=== PATIENT | male | born 1980 | race Caucasian/White ===

== ENCOUNTER 2021-07-04 16:19 | Emergency (ER) | payer SELFPAY ==
[~2021-07-04] VITALS: Ht 185.5 cm; Wt 158.8 kg
[~2021-07-04 16:19] MED LIST: AC500T PO; ACHD5005 PO; ATEN25TA PO; CIPR500T78 PO; CPR500T PO; DULO30CA PO; HYDR-3714 PO; HYDR12.570; HYDR1TAB PO; NAPR-243 PO; NAPR550T PO; NITR-65 PO; OMEP-10 PO; ONDA-42 SL; OXYC-12 PO; TMSL.4C PO; TRM50T PO
[2021-07-04 16:27] VITALS: BP 157/100
--- NOTE | 2021-07-04 16:35 | ED Lower Extremity ---
General Chief Complaint: Lower Extremity Stated Complaint: RIGHT FOOT PAIN/SWELLING Source: patient Exam Limitations: no limitations History of Present Illness Date Seen by Provider: Jul 04, 2021 Time Seen by Provider: 16:34 Initial Comments To ER with right lateral foot pain primarily over the fourth metatarsal. He fell on the ice on Tuesday of this week. Pain is worse with weightbearing. No sores or open wounds. Onset: just prior to arrival Severity: moderate Pain/Injury Location: right foot Method of Injury: fell Modifying Factors: Worse With Movement Allergies and Home Medications Allergies Coded Allergies: Sodium Phenolate (Unverified Allergy, Mild, EDEMA, 10/15/10) benzocaine (Unverified Allergy, Mild, EDEMA, 10/15/10) menthol (Unverified Allergy, Mild, EDEMA, 10/15/10) phenol (Unverified Allergy, Mild, EDEMA, 10/15/10) Patient Home Medication List Home Medication List Reviewed: Yes Ciprofloxacin HCl (Cipro) 500 Mg Tablet, 500 MG PO BID Prescribed by: SITA BERRY on 03/04/14 1059 Hydrocodone Bit/Acetaminophen (Hydrocodone-Apap 5-325 Tab) 1 Tab Tablet, 1-2 TAB PO Q4H PRN for PAIN Prescribed by: SITA BERRY on 03/04/14 1059 Hydrocodone/Acetaminophen (Hydrocodone-Acetamin 5-325 mg) 1 Each Tablet, 1 TAB PO Q4H PRN for PAIN-MODERATE (5-7) Prescribed by: JACKY POWERS on 07/04/21 1658 Ondansetron Hcl (Zofran Oral Dissolve) 4 Mg Tab, 4 MG SL Q4H PRN Prescribed by: SITA BERRY on 03/04/14 1059 Tamsulosin Hcl (Flomax Capsule) 0.4 Mg Cap.er.24h, 0.4 MG PO DAILY Prescribed by: SITA BERRY on 03/04/14 1059 Review of Systems Constitutional: see HPI EENTM: see HPI Respiratory: no symptoms reported Cardiovascular: no symptoms reported Genitourinary: no symptoms reported Musculoskeletal: see HPI Skin: no symptoms reported Psychiatric/Neurological: No Symptoms Reported Past Wpzdevd-Nljilg-Cmaofn Hx Patient Social History Tobacco Use?: No Use of E-Cig and/or Vaping dev: No Substance use?: No Alcohol Use?: Yes Alcohol Frequency: Once in a while Immunizations Up To Date Influenza Vaccine Up-to-Date: No; Not Current First/Initial COVID19 Vaccinat: NONE Second COVID19 Vaccination Kevin: NONE Third COVID19 Vaccination Date: NONE COVID19 Vaccine Shop Hand: NONE Past Medical History Sleep Apnea Hypertension Reproductive Disorders: No Kidney Stones Arthritis, Chronic Back Pain Anxiety, Depression Physical Exam Vital Signs Vital Signs - First Documented 07/04/21 16:27 Temp 36.2 Pulse 92 Resp 20 B/P (MAP) 157/100 (119) Pulse Ox 97 O2 Delivery Room Air Capillary Refill : Height, Weight, BMI Height: 5'2" Weight: 325lbs. oz. 147.107105yc; BMI Method:Stated General Appearance: WD/WN, no apparent distress HEENT: PERRL/EOMI, normal ENT inspection Neck: non-tender, full range of motion Respiratory: no respiratory distress, no accessory muscle use Hips: bilateral hip non-tender, bilateral hip normal inspection, bilateral hip normal range of motion Legs: bilateral leg non-tender, bilateral leg normal inspection, bilateral leg normal range of motion Knees: bilateral knee non-tender, bilateral knee normal inspection, bilateral knee normal range of motion Ankles: bilateral ankle non-tender, bilateral ankle normal inspection, bilateral ankle normal range of motion Feet: left foot other (Tender to palpation dorsal aspect of the left foot over the fourth metatarsal. No ecchymosis no erythema no open wound.) Neurologic/Psychiatric: alert, normal mood/affect, oriented x 3 Skin: normal color, warm/dry Progress/Results/Core Measures Results/Orders My Orders Orders - JACKY POWERS APRN Foot, Right, 3 View (07/04/21 16:33) Vital Signs/I&O 07/04/21 16:27 Temp 36.2 Pulse 92 Resp 20 B/P (MAP) 157/100 (119) Pulse Ox 97 O2 Delivery Room Air Diagnostic Imaging Diagonstic Imaging: Xray Comments NAME: CHRISTIANE DAMON MED REC#: [id number] PT STATUS: REG ER : 1980 PHYSICIAN: JACKY POWERS APRN ADMIT DATE: 07/04/21/ER Draft Date of Exam:07/04/21 FOOT, RIGHT, 3 VIEW INDICATION: Pain. COMPARISON: None available. TECHNIQUE: Three radiographs of the right foot dated July 04, 2021. FINDINGS: Seen only on the lateral radiograph, there is an obliquely oriented lucency overlying the base of either the 1st or 2nd metatarsal. This is not seen on the other radiographs. No additional fracture or dislocation. Moderate degenerative changes of the 1st MTP joint with joint space narrowing, mild hallux valgus metatarsus primus varus and bunion formation. Focal soft tissue swelling is also noted involving the 1st toe with associated overlying bandage or wound. The Lisfranc joint is well aligned. Small plantar calcaneal enthesophyte. Mild degenerative changes about the ankle. IMPRESSION: Obliquely oriented lucency extending through the base of the 1st or 2nd metatarsal, seen only on the lateral radiograph. Recommend correlation for focal pain at this location as it could relate to a nondisplaced fracture versus simply a vascular channel. 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 Soft tissue swelling of the 1st toe with potential overlying wound. Dictated on workstation # [id number] Dict: 07/04/218 Trans: 07/04/21 [address] [facility] [id number] Interpreted by: GITA HOLLOWAY MD Electronically signed by: Departure Communication (Admissions) There is a lucency to one of the proximal metatarsals although it is unclear which metatarsal it is because this is only seen on the lateral view. His tenderness is primarily over the fourth metatarsal. We will have him follow-up with primary care, pain control, postop shoe. Impression Primary Impression: Left foot pain Disposition: 01 HOME, SELF-CARE Condition: Stable Departure-Patient Inst. Decision time for Depature: 16:55 Referrals: [facility] (PCP/Family) Primary Care Physician Patient Instructions: Foot Fracture (DC) Add. Discharge Instructions: 1. Ice pack to the foot. Wear the special shoe as directed for the next week. Follow-up with your primary care provider towards the middle or end of this week for repeat evaluation. All discharge instructions reviewed with patient and/or family. Voiced understanding. Scripts Hydrocodone/Acetaminophen (Hydrocodone-Acetamin 5-325 mg) 1 Each Tablet 1 TAB PO Q4H PRN for PAIN-MODERATE (5-7), #10 TAB Prov: JACKY POWERS APRN 07/04/21 Work/School Note: Work Release Form Date Seen in the Emergency Department: Jul 04, 2021 Return to Work: Jul 06, 2021 JACKY POWERS APRN Jul 04, 2021 16:35
[2021-07-04] MEDS ORDERED: ACHD5005 PO (16:57)
--- NOTE | 2021-07-04 16:58 | Diagnostic Imaging Report ---
INDICATION: Pain. COMPARISON: None available. TECHNIQUE: Three radiographs of the right foot dated July 04, 2021. FINDINGS: Seen only on the lateral radiograph, there is an obliquely oriented lucency overlying the base of either the 1st or 2nd metatarsal. This is not seen on the other radiographs. No additional fracture or dislocation. Moderate degenerative changes of the 1st MTP joint with joint space narrowing, mild hallux valgus metatarsus primus varus and bunion formation. Focal soft tissue swelling is also noted involving the 1st toe with associated overlying bandage or wound. The Lisfranc joint is well aligned. Small plantar calcaneal enthesophyte. Mild degenerative changes about the ankle. IMPRESSION: Obliquely oriented lucency extending through the base of the 1st or 2nd metatarsal, seen only on the lateral radiograph. Recommend correlation for focal pain at this location as it could relate to a nondisplaced fracture versus simply a vascular channel. 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 Soft tissue swelling of the 1st toe with potential overlying wound. Dictated by: Dictated on workstation # [id number]
== END 2021-07-04 17:17 | disposition home or self-care (01) ==
LOC: EDUNIT# 16:19 → ER 16:22
DX: M79.672 Pain in left foot (principal)
CPT/HCPCS: 73630

== ENCOUNTER 2022-04-07 02:03 | Emergency (ER) | payer OTHER ==
[~2022-04-07] VITALS: Ht 188 cm; Wt 158.8 kg
--- NOTE | 2022-04-07 02:22 | ED Lower Extremity ---
General Chief Complaint: Lower Extremity Stated Complaint: RT FOOT SWELLING History of Present Illness Date Seen by Provider: Apr 07, 2022 Time Seen by Provider: 02:22 Initial Comments 41-year-old male is here with complaints of right foot swelling and pain which has been going on for several weeks. Patient has a history of a fracture of the second metatarsal approximately a year ago. Patient has poor foot hygiene and care, and has multiple issues with his right foot which include bunions, deformity, complex calluses, toenail abnormalities. Denies fever, shortness of breath, chest tightness. Patient is able to ambulate Allergies and Home Medications Allergies Coded Allergies: Sodium Phenolate (Unverified Allergy, Mild, EDEMA, 10/15/10) benzocaine (Unverified Allergy, Mild, EDEMA, 10/15/10) menthol (Unverified Allergy, Mild, EDEMA, 10/15/10) phenol (Unverified Allergy, Mild, EDEMA, 10/15/10) Patient Home Medication List Home Medication List Reviewed: Yes Ciprofloxacin HCl (Cipro) 500 Mg Tablet, 500 MG PO BID Prescribed by: SITA BERRY on 03/04/14 1059 Hydrocodone Bit/Acetaminophen (Hydrocodone-Apap 5-325 Tab) 1 Tab Tablet, 1-2 TAB PO Q4H PRN for PAIN Prescribed by: SITA BERRY on 03/04/14 1059 Hydrocodone/Acetaminophen (Hydrocodone-Acetamin 5-325 mg) 1 Each Tablet, 1 TAB PO Q4H PRN for PAIN-MODERATE (5-7) Prescribed by: JACKY POWERS on 07/04/21 1658 Ondansetron Hcl (Zofran Oral Dissolve) 4 Mg Tab, 4 MG SL Q4H PRN Prescribed by: SITA BERRY on 03/04/14 1059 Tamsulosin Hcl (Flomax Capsule) 0.4 Mg Cap.er.24h, 0.4 MG PO DAILY Prescribed by: SITA BERRY on 03/04/14 1059 Review of Systems Constitutional: no symptoms reported EENTM: no symptoms reported Respiratory: no symptoms reported Cardiovascular: no symptoms reported Gastrointestinal: no symptoms reported Genitourinary: no symptoms reported Musculoskeletal: joint pain, joint swelling Skin: no symptoms reported Psychiatric/Neurological: No Symptoms Reported Past Hyshhxc-Nkfsbi-Aqqtwk Hx Immunizations Up To Date First/Initial COVID19 Vaccinat: NONE Second COVID19 Vaccination Kevin: NONE Third COVID19 Vaccination Date: NONE Past Medical History Sleep Apnea Hypertension Reproductive Disorders: No Kidney Stones Arthritis, Chronic Back Pain Anxiety, Depression Physical Exam Vital Signs Vital Signs - First Documented 04/07/22 02:20 Temp 37.2 Pulse 95 Resp 18 B/P (MAP) 181/105 (130) Capillary Refill : Height, Weight, BMI Height: 5'2" Weight: 325lbs. oz. 147.111776vh; 46.00 BMI Method:Stated General Appearance: WD/WN, no apparent distress HEENT: PERRL/EOMI Neck: full range of motion Cardiovascular: regular rate, rhythm Respiratory: lungs clear Ankles: bilateral ankle normal inspection, bilateral ankle normal range of motion Feet: right foot normal range of motion, right foot bone tenderness, right foot deformity (Valgus deformity of first metatarsal, multiple calluses over his big toe, heel, poor foot hygiene, swelling over the dorsum of the foot only, and not extending up the leg or ankle. N/V bundle intact. 8 patient able to ambulate), right foot pain, right foot soft tissue tenderness, right foot swelling Neurologic/Tendon: normal sensation, normal motor functions Neurologic/Psychiatric: no motor/sensory deficits, alert, normal mood/affect, oriented x 3 Skin: normal color Progress/Results/Core Measures Results/Orders My Orders Orders - IRMA MAS MD Foot, Right, 3 View (04/07/22 02:54) Vital Signs/I&O 04/07/22 02:20 Temp 37.2 Pulse 95 Resp 18 B/P (MAP) 181/105 (130) Progress Progress Note : Progress Note 1. CHRONIC 2nd METATARSAL BASE FRACTURE WITH CHANGES/ ARTHRITIS/ BONE SPURS: - XR RIGHT FOOT - Ortho shoe - Follow up with Podiatry clinic: Dr Mata: Office number: [phone] -The patient was seen in the ED, and treated appropriately to presentation at a specific point in time. Patient is informed that there is a possibility that di sease and illness can evolve and change in acuity rapidly or slowly after patient is discharged from the ER. Precautionary advice given to the patient for immediate return to ER if symptoms worsen or do not resolve, and to seek emergency care sooner rather than later. Pt also advised on the importance of PCP follow up and compliance with management and follow up plan with PCP and/or specialist, as this is part of the management plan. Pt verbally expressed understanding. Diagnostic Imaging Diagonstic Imaging: Xray Plain Films/CT/US/NM/MRI: other Departure Impression Primary Impression: Closed fracture of second metatarsal bone of right foot with malunion Additional Impressions: Bone spur of right foot Arthritis of foot, right Disposition: 01 HOME, SELF-CARE Condition: Stable Departure-Patient Inst. Referrals: [facility] [place] (PCP/Family) Primary Care Physician OUMOU MATA DPM Patient Instructions: Foot Fracture (DC), Heel Spurs Add. Discharge Instructions: - Ortho shoe - Follow up with Podiatry clinic: Dr Mata: Office number: [phone] All discharge instructions reviewed with patient and/or family. Voiced understanding. IRMA MAS MD Apr 07, 2022 02:22
[2022-04-07 04:40] VITALS: BP 136/93
--- NOTE | 2022-04-07 05:44 | Diagnostic Imaging Report ---
INDICATION: Pain status post previous injury. COMPARISON: 07/04/2021 FINDINGS: Multiple radiographic views of the right foot were obtained and show gross deformities involving the proximal portions of the 2nd and 3rd metatarsals. Findings are suggestive of old fractures. There is a large heterotopic bone formation extending off the dorsum of the foot only well visualized on the lateral view. Note is also made of hallux valgus deformity of the great toe. No definite acute osseous abnormality is seen. Joint spaces appear intact. No unexpected radiopaque foreign bodies are identified. IMPRESSION: 1. Chronic appearing deformities of the proximal portions of the 2nd and 3rd metatarsals suggestive of old incompletely fused fractures. Correlation with cross-sectional imaging may be of benefit. 2. 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 Dictated by: Dictated on workstation # [id number]
== END 2022-04-07 04:41 | disposition home or self-care (01) ==
LOC: EDUNIT# 02:03 → ER 02:07
DX: S92.32 Fracture of second metatarsal bone (principal); M19.071 Primary osteoarthritis, right ankle and foot; M77.8 Other enthesopathies, not elsewhere classified; X58.XXXD Exposure to other specified factors, subsequent encounter
CPT/HCPCS: 73630